=== PATIENT | male | born 1930 | race Caucasian/White ===

== ENCOUNTER → 2017-04-05 | Outpatient (CLI) | payer MEDICARE ==
[~2017-04-05] MED LIST: ACET500 PO; ASPI81CH; ASPI81CH PO; ASPI81EC PO; ATOR10 PO; Bisac-Evac10 MG RC; CEPH500 PO; CHOL10002 PO; CLON.5 PO; CVS DISPOSABLE399 ML PR; CYAN1000 IM; CYAN1000I IM; DIPATR PO; DOC250 PO; DOCU100 PO; Dilantin 100 m100 MG PO; EPRO400; ESCI5 PO; EXELON1 EACH TOP; FURO40 PO; GABA300 PO; HYDACE5 PO; LAVAP17G PO; LOPE2C PO; LORA1 PO; LOSA25 PO; LOSHYD PO; Loperamide2 MG PO; MECL25 PO; METO10 PO; METO50 PO; Milk Of Ma400 MG/5 M PO; OMEP10ER PO; OMEP20ER PO; ONDA4 PO; ONDA4ODT MM; PHENY100ER PO; PRESTIQ PO; PROC10 PO; QUET25 PO; SERT100; TRAM50 PO; TRAZ50 PO
[2017-04-05 10:51] LABS: Influenza A Negative (NEGATIVE); Influenza B Negative (NEGATIVE)
== END ==
LOC: LAB 10:26
PROVIDERS: Internal Medicine
DX: R05 Cough (principal); R50.9 Fever, unspecified
CPT/HCPCS: 87804

== ENCOUNTER 2018-02-03 12:12 | Emergency (ER) | payer MEDICARE ==
[~2018-02-03] VITALS: Ht 185.4 cm; Wt 81.7 kg
[~2018-02-03 12:12] MED LIST changes: -FURO40 PO
[2018-02-03] MEDS ORDERED: FURO40 PO (12:35)
[2018-02-03 13:02] LABS: BASOPHILS ABSOLUTE AUTO 0.05 K/mm3 (0.00-0.23); BASOPHILS PERCENT AUTO 0 % (0-2); EOSINOPHILS ABSOLUTE AUTO 0.03 K/mm3 (0.00-0.68); EOSINOPHILS PERCENT AUTO 0 % (0-6); Hematocrit 37.8 % (37.0-53.0); Hemoglobin 12.5 g/dL (13.5-17.5); IMMATURE GRAN ABSOLUTE AUTO 0.04 K/mm3 (0.00-0.10); IMMATURE GRAN PERCENT AUTO 0 % (0-1); LYMPHOCYTES ABSOLUTE AUTO 0.71 K/mm3 (0.84-5.20); LYMPHOCYTES PERCENT AUTO 6 % (21-46); MONOCYTES ABSOLUTE AUTO 0.89 K/mm3 (0.16-1.47); MONOCYTES PERCENT AUTO 8 % (4-13); Mean Corpuscular HGB 30.3 pg (26.0-34.0); Mean Corpuscular HGB Conc 33.1 g/dL (31.5-36.5); Mean Corpuscular Volume 92 fL (80-100); Mean Platelet Volume 9.3 fL (9.1-12.4); NEUTROPHILS ABSOLUTE AUTO 9.52 K/mm3 (1.96-9.15); NEUTROPHILS PERCENT AUTO 85 % (41-73); Platelet Count 175 K/mm3 (150-400); RDW Coefficient Variation 13.4 % (11.7-14.2); RDW Standard Deviation 44.7 fL (35.1-46.3); Red Blood Cell Count 4.12 M/mm3 (4.30-5.90); White Blood Cell Count 11.24 K/mm3 (4.00-11.30)
[2018-02-03 13:16] LABS: Bun/Creatinine Ratio 23.2 (12.0-20.0); Creatinine, Blood 1.25 mg/dL (0.60-1.20); Potassium, Blood 4.1 mmol/L (3.5-5.5)
[2018-02-03 13:59] LABS: Influenza A Negative (NEGATIVE); Influenza B Negative (NEGATIVE)
[2018-02-03 14:14] LABS: Bilirubin, Urine Neg (Neg); Blood, Urine 4+ (Neg); Glucose Qualitative, Urine Neg (Neg); Ketones, Urine 1+ (Neg); Leukocyte Esterase, Urine 3+ (Neg); Nitrite, Urine Pos (Neg); Protein, Urine 2+ (Neg); Urobilinogen, Urine NORM (Normal)
[2018-02-03 14:25] LABS: Appearance, Urine Clear (Clear); Color, Urine Yellow (P-Yellow)
[2018-02-03 14:29] LABS: Triple Phosphate Crystals Mod /hpf
[2018-02-03 14:30] LABS: Bacteria Many /hpf; Squamous Epithelial Cells Few /hpf (Few)
[2018-02-03] MEDS ORDERED: CEPH500 PO (14:33)
== END 2018-02-03 15:21 | disposition home or self-care (01) ==
LOC: ER 12:12
PROVIDERS: Emergency Medicine
DX: F03.90 Unspecified dementia, unspecified severity, without behavioral disturbance, psychotic disturbance, mood disturbance, and anxiety (principal); R50.9 Fever, unspecified; W18.30XA Fall on same level, unspecified, initial encounter; Z79.899 Other long term (current) drug therapy; Z79.82 Long term (current) use of aspirin; I10 Essential (primary) hypertension; F41.9 Anxiety disorder, unspecified; Z86.73 Personal history of transient ischemic attack (TIA), and cerebral infarction without residual deficits; K21.9 Gastro-esophageal reflux disease without esophagitis; G40.909 Epilepsy, unspecified, not intractable, without status epilepticus; Z87.891 Personal history of nicotine dependence
CPT/HCPCS: 70450; 71046; 80048; 81001; 85025; 87077; 87086; 87186; 87804; 93005; 93010; 96361; 96365; 99284-25; J0696; J7030

== ENCOUNTER → 2018-05-23 | Outpatient (CLI) | payer MEDICARE ==
[~2018-05-23] MED LIST changes: +FURO40 PO
[2018-05-23 12:12] LABS: Bilirubin, Urine Neg (Neg); Blood, Urine Neg (Neg); Glucose Qualitative, Urine Neg (Neg); Ketones, Urine Neg (Neg); Leukocyte Esterase, Urine Neg (Neg); Nitrite, Urine Neg (Neg); Protein, Urine Neg (Neg); Urobilinogen, Urine NORM (Normal)
[2018-05-23 12:21] LABS: Appearance, Urine Clear (Clear); Color, Urine Yellow (P-Yellow)
== END | disposition home or self-care (01) ==
LOC: LAB SHORT 07:30 → LAB 07:30
PROVIDERS: Internal Medicine
DX: N39.0 Urinary tract infection, site not specified (principal)
CPT/HCPCS: 81003

== ENCOUNTER 2019-02-16 18:58 | Emergency (ER) | payer MEDICARE, OTHER ==
[~2019-02-16] VITALS: Ht 182.9 cm; Wt 90.7 kg
[~2019-02-16 18:58] MED LIST changes: +ACET325 PO; -ACET500 PO; -Bisac-Evac10 MG RC; -CHOL10002 PO; -CYAN1000I IM; +CYANOCOBAL1000 MCG/1 IM; -LAVAP17G PO; +LOSA50 PO; +MIRALAX17 GM PO; +PHENYTOIN SODI100 MG PO; +VITAMIN D33000 UNI1 PO
[2019-02-16 19:23] LABS: BASOPHILS ABSOLUTE AUTO 0.05 K/mm3 (0.00-0.23); BASOPHILS PERCENT AUTO 1 % (0-2); EOSINOPHILS ABSOLUTE AUTO 0.41 K/mm3 (0.00-0.68); EOSINOPHILS PERCENT AUTO 5 % (0-6); Hemoglobin 11.8 g/dL (13.5-17.5); IMMATURE GRAN ABSOLUTE AUTO 0.07 K/mm3 (0.00-0.10); IMMATURE GRAN PERCENT AUTO 1 % (0-1); LYMPHOCYTES ABSOLUTE AUTO 1.71 K/mm3 (0.84-5.20); LYMPHOCYTES PERCENT AUTO 20 % (21-46); MONOCYTES ABSOLUTE AUTO 0.63 K/mm3 (0.16-1.47); MONOCYTES PERCENT AUTO 7 % (4-13); Mean Corpuscular HGB Conc 32.8 g/dL (31.5-36.5); Mean Corpuscular Volume 95 fL (80-100); Mean Platelet Volume 9.2 fL (9.1-12.4); NEUTROPHILS ABSOLUTE AUTO 5.75 K/mm3 (1.96-9.15); NEUTROPHILS PERCENT AUTO 67 % (41-73); Platelet Count 235 K/mm3 (150-400); RDW Standard Deviation 48.1 fL (35.1-46.3); Red Blood Cell Count 3.81 M/mm3 (4.30-5.90); White Blood Cell Count 8.62 K/mm3 (4.00-11.30)
[2019-02-16] MEDS ORDERED: BISA5EC PO (19:44)
[2019-02-16] MEDS ORDERED: Bumetanide2 MG PO (19:45)
[2019-02-16 19:50] LABS: Albumin, Blood 3.4 g/dL (3.4-5.0); Albumin/Globulin Ratio 0.8 (0.8-1.8); Bilirubin, Total 0.2 mg/dL (0.1-1.0); Bun/Creatinine Ratio 25.8 (12.0-20.0); Calcium, Blood 8.5 mg/dL (8.5-10.1); Creatinine, Blood 1.86 mg/dL (0.60-1.20); Globulin, Blood 4.4 g/dL (2.2-4.0); Potassium, Blood 3.8 mmol/L (3.5-5.5); Total Protein, Blood 7.8 g/dL (6.4-8.2); Troponin I 0.031 ng/mL (0.000-0.040)
[2019-02-16] MEDS ORDERED: POTA10T PO (20:55)
[2019-02-16] MEDS ORDERED: Mirapex1 MG PO ×2 (20:56→21:00)
[2019-02-16] MEDS ORDERED: QUET25 PO ×2 (20:57→20:59)
[2019-02-16] MEDS ORDERED: Seroquel Xr50 MG PO (20:57)
[2019-02-16] MEDS ORDERED: IBUP400 PO (20:58)
[2019-02-16] MEDS ORDERED: NITR.4SL SL (21:00)
[2019-02-16] MEDS ORDERED: ANTIFUNGAL30 GM TOP (21:01)
== END 2019-02-16 20:46 | disposition home or self-care (01) ==
LOC: ER 18:58
PROVIDERS: Emergency Medicine
DX: R25.2 Cramp and spasm (principal); F03.90 Unspecified dementia, unspecified severity, without behavioral disturbance, psychotic disturbance, mood disturbance, and anxiety; I10 Essential (primary) hypertension; F41.9 Anxiety disorder, unspecified; K21.9 Gastro-esophageal reflux disease without esophagitis; G40.909 Epilepsy, unspecified, not intractable, without status epilepticus; Z79.899 Other long term (current) drug therapy; Z79.82 Long term (current) use of aspirin; Z86.73 Personal history of transient ischemic attack (TIA), and cerebral infarction without residual deficits; Z87.891 Personal history of nicotine dependence
CPT/HCPCS: 71046; 80053; 83880; 84484; 85025; 93005; 93010; 99284-25

== ENCOUNTER → 2019-03-05 | Outpatient (CLI) | payer MEDICARE, OTHER ==
[~2019-03-05] MED LIST changes: +ANTIFUNGAL30 GM TOP; +BISA5EC PO; +Bumetanide2 MG PO; +IBUP400 PO; +ISOMON20 PO; +Mirapex1 MG PO; +NITR.4SL SL; +POTA10T PO; +Seroquel Xr50 MG PO
[2019-03-06 13:44] LABS: Appearance, Urine Clear (Clear); Bilirubin, Urine Neg (Neg); Blood, Urine Neg (Neg); Color, Urine Yellow (P-Yellow); Glucose Qualitative, Urine Neg (Neg); Ketones, Urine Neg (Neg); Leukocyte Esterase, Urine Neg (Neg); Nitrite, Urine Neg (Neg); Protein, Urine Neg (Neg); Specific Gravity, Urine 1.015 (1.003-1.022); Urobilinogen, Urine NORM (Normal)
== END ==
LOC: LAB 18:45 → LAB SHORT 18:45
PROVIDERS: Internal Medicine
DX: N39.0 Urinary tract infection, site not specified (principal)
CPT/HCPCS: 81003

== ENCOUNTER 2019-03-06 12:37 | Emergency (ER) | payer MEDICARE, OTHER ==
[~2019-03-06] VITALS: Ht 182.9 cm; Wt 79.4 kg
[~2019-03-06 12:37] MED LIST changes: -ISOMON20 PO
[2019-03-06 13:01] LABS: BASOPHILS ABSOLUTE AUTO 0.05 K/mm3 (0.00-0.23); BASOPHILS PERCENT AUTO 1 % (0-2); EOSINOPHILS ABSOLUTE AUTO 0.46 K/mm3 (0.00-0.68); EOSINOPHILS PERCENT AUTO 5 % (0-6); Hematocrit 35.7 % (37.0-53.0); Hemoglobin 11.5 g/dL (13.5-17.5); IMMATURE GRAN ABSOLUTE AUTO 0.06 K/mm3 (0.00-0.10); IMMATURE GRAN PERCENT AUTO 1 % (0-1); LYMPHOCYTES ABSOLUTE AUTO 1.39 K/mm3 (0.84-5.20); LYMPHOCYTES PERCENT AUTO 16 % (21-46); MONOCYTES ABSOLUTE AUTO 0.66 K/mm3 (0.16-1.47); MONOCYTES PERCENT AUTO 8 % (4-13); Mean Corpuscular HGB 30.8 pg (26.0-34.0); Mean Corpuscular HGB Conc 32.2 g/dL (31.5-36.5); Mean Corpuscular Volume 96 fL (80-100); Mean Platelet Volume 8.8 fL (9.1-12.4); NEUTROPHILS ABSOLUTE AUTO 6.06 K/mm3 (1.96-9.15); NEUTROPHILS PERCENT AUTO 70 % (41-73); Platelet Count 264 K/mm3 (150-400); RDW Coefficient Variation 13.7 % (11.7-14.2); RDW Standard Deviation 47.7 fL (35.1-46.3); Red Blood Cell Count 3.73 M/mm3 (4.30-5.90); White Blood Cell Count 8.68 K/mm3 (4.00-11.30)
[2019-03-06 13:15] LABS: Albumin/Globulin Ratio 0.7 (0.8-1.8); Bilirubin, Total 0.2 mg/dL (0.1-1.0); Bun/Creatinine Ratio 20.9 (12.0-20.0); Calcium, Blood 8.4 mg/dL (8.5-10.1); Creatinine, Blood 1.48 mg/dL (0.60-1.20); Globulin, Blood 4.3 g/dL (2.2-4.0); Potassium, Blood 4.7 mmol/L (3.5-5.5); Total Protein, Blood 7.3 g/dL (6.4-8.2)
== END 2019-03-06 15:06 | disposition home or self-care (01) ==
LOC: ER 12:37
PROVIDERS: Emergency Medicine
DX: S30.0XXA Contusion of lower back and pelvis, initial encounter (principal); I10 Essential (primary) hypertension; F41.9 Anxiety disorder, unspecified; G40.909 Epilepsy, unspecified, not intractable, without status epilepticus; F03.90 Unspecified dementia, unspecified severity, without behavioral disturbance, psychotic disturbance, mood disturbance, and anxiety; Z86.73 Personal history of transient ischemic attack (TIA), and cerebral infarction without residual deficits; Z79.899 Other long term (current) drug therapy; Z79.82 Long term (current) use of aspirin; W19.XXXA Unspecified fall, initial encounter
CPT/HCPCS: 36415; 70450; 71046; 72100; 73502; 80053; 85025; 93005; 93010; 99284-25

== ENCOUNTER 2019-03-09 19:40 | Emergency (ER) | payer MEDICARE, OTHER ==
[~2019-03-09] VITALS: Ht 185.4 cm; Wt 90.7 kg
[2019-03-09 20:04] LABS: BASOPHILS ABSOLUTE AUTO 0.06 K/mm3 (0.00-0.23); BASOPHILS PERCENT AUTO 1 % (0-2); EOSINOPHILS ABSOLUTE AUTO 0.61 K/mm3 (0.00-0.68); EOSINOPHILS PERCENT AUTO 6 % (0-6); Hematocrit 36.8 % (37.0-53.0); Hemoglobin 11.8 g/dL (13.5-17.5); IMMATURE GRAN PERCENT AUTO 1 % (0-1); LYMPHOCYTES ABSOLUTE AUTO 1.78 K/mm3 (0.84-5.20); LYMPHOCYTES PERCENT AUTO 18 % (21-46); MONOCYTES ABSOLUTE AUTO 0.81 K/mm3 (0.16-1.47); MONOCYTES PERCENT AUTO 8 % (4-13); Mean Corpuscular HGB 30.8 pg (26.0-34.0); Mean Corpuscular HGB Conc 32.1 g/dL (31.5-36.5); Mean Corpuscular Volume 96 fL (80-100); Mean Platelet Volume 8.7 fL (9.1-12.4); NEUTROPHILS ABSOLUTE AUTO 6.82 K/mm3 (1.96-9.15); NEUTROPHILS PERCENT AUTO 67 % (41-73); Platelet Count 318 K/mm3 (150-400); RDW Coefficient Variation 13.9 % (11.7-14.2); RDW Standard Deviation 48.6 fL (35.1-46.3); Red Blood Cell Count 3.83 M/mm3 (4.30-5.90); White Blood Cell Count 10.18 K/mm3 (4.00-11.30)
[2019-03-09 20:22] LABS: Troponin I <0.015 ng/mL (0.000-0.040)
[2019-03-09 20:23] LABS: Alanine Aminotransfer (ALT/SGP 19 U/L (12-78); Albumin, Blood 3.3 g/dL (3.4-5.0); Albumin/Globulin Ratio 0.8 (0.8-1.8); Alk Phos 184 U/L (50-136); Anion Gap 7 mmol/L (6-16); Aspartate Aminotrans (AST/SGOT 9 U/L (12-37); Bilirubin, Total 0.2 mg/dL (0.1-1.0); Blood Urea Nitrogen 30 mg/dL (8-24); Bun/Creatinine Ratio 19.9 (12.0-20.0); CO2, Blood 27 mmol/L (21-32); Calcium, Blood 8.5 mg/dL (8.5-10.1); Chloride, Blood 102 mmol/L (98-108); Creatinine, Blood 1.51 mg/dL (0.60-1.20); Globulin, Blood 4.3 g/dL (2.2-4.0); Glomerular Filtration Rate 47 (60-); Glucose, Blood 131 mg/dL (70-99); Potassium, Blood 3.8 mmol/L (3.5-5.5); Sodium, Blood 136 mmol/L (136-145); Total Protein, Blood 7.6 g/dL (6.4-8.2)
== END 2019-03-10 00:28 | disposition home or self-care (01) ==
LOC: ER 19:40
PROVIDERS: Emergency Medicine
DX: R07.9 Chest pain, unspecified (principal); I12.9 Hypertensive chronic kidney disease with stage 1 through stage 4 chronic kidney disease, or unspecified chronic kidney disease; N18.9 Chronic kidney disease, unspecified; I25.10 Atherosclerotic heart disease of native coronary artery without angina pectoris; F03.90 Unspecified dementia, unspecified severity, without behavioral disturbance, psychotic disturbance, mood disturbance, and anxiety; J44.9 Chronic obstructive pulmonary disease, unspecified; G40.909 Epilepsy, unspecified, not intractable, without status epilepticus; F41.9 Anxiety disorder, unspecified; K21.9 Gastro-esophageal reflux disease without esophagitis; Z87.891 Personal history of nicotine dependence; Z79.899 Other long term (current) drug therapy; Z79.82 Long term (current) use of aspirin; Z86.73 Personal history of transient ischemic attack (TIA), and cerebral infarction without residual deficits
CPT/HCPCS: 71046; 80053; 83880; 84484; 85025; 93005; 93010; 94640; 99285-25

== ENCOUNTER 2019-03-16 20:13 | Inpatient (IN) | payer MEDICARE, OTHER ==
[~2019-03-16] VITALS: Ht 177.8 cm; Wt 97.4 kg
[2019-03-16 20:35] LABS: BASOPHILS ABSOLUTE AUTO 0.07 K/mm3 (0.00-0.23); BASOPHILS PERCENT AUTO 1 % (0-2); EOSINOPHILS ABSOLUTE AUTO 0.36 K/mm3 (0.00-0.68); EOSINOPHILS PERCENT AUTO 3 % (0-6); Hematocrit 34.5 % (37.0-53.0); Hemoglobin 11.2 g/dL (13.5-17.5); IMMATURE GRAN PERCENT AUTO 1 % (0-1); LYMPHOCYTES ABSOLUTE AUTO 1.29 K/mm3 (0.84-5.20); LYMPHOCYTES PERCENT AUTO 12 % (21-46); MONOCYTES ABSOLUTE AUTO 0.85 K/mm3 (0.16-1.47); MONOCYTES PERCENT AUTO 8 % (4-13); Mean Corpuscular HGB 31.1 pg (26.0-34.0); Mean Corpuscular HGB Conc 32.5 g/dL (31.5-36.5); Mean Corpuscular Volume 96 fL (80-100); Mean Platelet Volume 8.9 fL (9.1-12.4); NEUTROPHILS ABSOLUTE AUTO 8.18 K/mm3 (1.96-9.15); NEUTROPHILS PERCENT AUTO 76 % (41-73); Platelet Count 275 K/mm3 (150-400); RDW Coefficient Variation 14.4 % (11.7-14.2); RDW Standard Deviation 49.4 fL (35.1-46.3); White Blood Cell Count 10.85 K/mm3 (4.00-11.30)
[2019-03-16 21:00] LABS: Albumin/Globulin Ratio 0.7 (0.8-1.8); Bilirubin, Total 0.1 mg/dL (0.1-1.0); Bun/Creatinine Ratio 23.8 (12.0-20.0); Calcium, Blood 8.3 mg/dL (8.5-10.1); Creatinine, Blood 1.47 mg/dL (0.60-1.20); Globulin, Blood 4.4 g/dL (2.2-4.0); Potassium, Blood 3.6 mmol/L (3.5-5.5); Total Protein, Blood 7.4 g/dL (6.4-8.2); Troponin I 0.136 ng/mL (0.000-0.040)
[2019-03-17 06:45] LABS: Bun/Creatinine Ratio 22.7 (12.0-20.0); Calcium, Blood 8.1 mg/dL (8.5-10.1); Creatinine, Blood 1.41 mg/dL (0.60-1.20); Potassium, Blood 3.8 mmol/L (3.5-5.5)
[2019-03-17 07:01] LABS: Troponin I 3.34 ng/mL (0.000-0.040)
--- NOTE | 2019-03-17 07:48 | NUR ---
PT TO ICU @ 0632 VIA FRANCOISE WITH ED RN. PT VERY CONFUSED, WILL ANSWER TO HIS NAME BUT UNABLE TO VERBALIZE NAME AND , FREQUENTLY ASKS WHERE HE IS AND WHAT IS HAPPENING, SPOKE WITH PTS SON THIS AM AND STS THIS IS PTS BASELINE. PTS RESPIRATIONS ARE EVEN AND UNLABORED, 96% ON RA, HR 64, BP STABLE. 3-4+ EDEMA TO BLE, PT DENIES ANY PAIN AT TIME OF ARRIVAL. SON STS WILL BE IN LATER TODAY TO VISIT WITH PT AND GET UPDATE ON PTS STATUS. REPORT TO ERROL WILKS.
--- NOTE | 2019-03-17 08:50 | NUR ---
DR. RED AT BEDSIDE FOR ASSESSMENT. NO NEW ORDERS AT THIS TIME, WILL LIKELY MEDICALLY MANAGE THIS PT. CARDIAC ECHO COMPLETE.
--- NOTE | 2019-03-17 13:35 | NUR ---
ASSISTED PT TO TRANSFER FROM BED TO TOILET. REQUIRES GAIT BELT AND FWW. PAIN IN L KNEE IS RESOLVED. NOTED THAT WHEN WALKING, PT DOES NOT STAND FULLY ERECT BUT HUNCHES OVER THE WALKER. ALSO SLIDES HIS R FOOT ON THE FLOOR, IS UNALBL;E TO PICK FOOT UP WHEN WALKING. UNSURE IF THIS IS BASELINE.
--- NOTE | 2019-03-17 16:17 | NUR ---
PT'S SON KATIE AT BEDSIDE, DR. RED ARRIVED TO SPEAK WITH HIM.
[2019-03-17 17:16] LABS: Prostate Specific Antigen 0.555 ng/mL (0.000-4.000)
--- NOTE | 2019-03-17 18:31 | NUR ---
SHIFT SUMMARY: NO ACUTE EVENTS TODAY, NO C/O CHEST DISCOMFORT. SATS > 92% ON RA, DENIES SOB. C/O PAIN IN L KNEE, MEDICATED X 1 WITH GOOD EFFECT. USES URINAL WITH MAX ASSIST (NEEDS TO STAND FOR EFFECTIVE VOID). USED BSC FOR BM. MAX ASSIST WITH GAIT BELT AND FWW TO STAND. PER SON KATIE, PT SLEEPS IN A RECLINER AT HOME, SO HE IS IN RECLINER HERE. ADEQUATE PO INTAKE. SON VISITED THIS AFTERNOON, SPOKE WITH DR. RED.
--- NOTE | 2019-03-17 18:55 | NUR ---
REPORT BEDSIDE REPORT RECEIVED FROM LASHAUN NORTON. PT SITTING IN RECLINER, SON AT HIS SIDE. PT PLEASANT, ANVIK, FORGETFUL. RN REPORTS PT HAS RESTLESS LEGS, EDEMA TO BLE, LT KNEE PAIN AND TYLENOL GIVEN EARLIER TODAY, BM TODAY. PT HAD ECHO TODAY. PT STANDS TO USE URINAL WITH GAIT BELT, WALKER, AND MAX ASSIST. RN ALSO REPORTS PT HAD NSTEMI, DEMENTIA, MS, ANXIETY, AND IS NOW MEDICAL WITH TELE. WILL CONTINUE TO MONITOR PT THROUGHTOUT THIS SHIFT.
[2019-03-18 03:42] LABS: BASOPHILS ABSOLUTE AUTO 0.03 K/mm3 (0.00-0.23); BASOPHILS PERCENT AUTO 1 % (0-2); EOSINOPHILS ABSOLUTE AUTO 0.35 K/mm3 (0.00-0.68); EOSINOPHILS PERCENT AUTO 6 % (0-6); Hematocrit 30.2 % (37.0-53.0); Hemoglobin 9.7 g/dL (13.5-17.5); IMMATURE GRAN ABSOLUTE AUTO 0.04 K/mm3 (0.00-0.10); IMMATURE GRAN PERCENT AUTO 1 % (0-1); LYMPHOCYTES ABSOLUTE AUTO 1.37 K/mm3 (0.84-5.20); LYMPHOCYTES PERCENT AUTO 23 % (21-46); MONOCYTES ABSOLUTE AUTO 0.57 K/mm3 (0.16-1.47); MONOCYTES PERCENT AUTO 10 % (4-13); Mean Corpuscular HGB 30.7 pg (26.0-34.0); Mean Corpuscular HGB Conc 32.1 g/dL (31.5-36.5); Mean Corpuscular Volume 96 fL (80-100); Mean Platelet Volume 8.6 fL (9.1-12.4); NEUTROPHILS ABSOLUTE AUTO 3.66 K/mm3 (1.96-9.15); NEUTROPHILS PERCENT AUTO 61 % (41-73); Platelet Count 220 K/mm3 (150-400); RDW Coefficient Variation 14.5 % (11.7-14.2); RDW Standard Deviation 50.1 fL (35.1-46.3); Red Blood Cell Count 3.16 M/mm3 (4.30-5.90); White Blood Cell Count 6.02 K/mm3 (4.00-11.30)
[2019-03-18 04:05] LABS: Bun/Creatinine Ratio 20.8 (12.0-20.0); Creatinine, Blood 1.44 mg/dL (0.60-1.20); Potassium, Blood 3.8 mmol/L (3.5-5.5)
[2019-03-18 04:08] LABS: Thyroid Stimulating Hormone 4.98 uIU/mL (0.360-4.800)
--- NOTE | 2019-03-18 06:35 | NUR ---
SHIFT SUMMARY PT SITS UP IN RECLINER OR LAYS IN BED THIS SHIFT. PT IS MAX ASSIST X2 WITH WALKER AND GAIT BELT WHEN UP. HEART RATE 50-80s, NSR /C PVCs PER ROLL PRESS OPERATOR. VS WNL; AFEBRILE. LUNGS REMAIN CLEAR, SAT 96% ON RM AIR. BOWEL SOUNDS PRESENT, VOIDS PER URINAL/BSC. 3+ EDEMA AND MILD REDNESS NOTED TO BLE. SL TO RT FA, PATENT. PT SWALLOWS WELL AND DRINKS ENSURE CLEAR THIS SHIFT PER REQUEST. PT CAN BE COMBATIVE, CONFUSED AT TIMES BUT OTHERWISE PLEASANT, SINGING TO THIS RN, BUT REMAINS CONFUSED TONIGHT. WILL CONTINUE TO MONITOR PT THIS SHIFT. WILL GIVE BEDSIDE REPORT ONCE DAY SHIFT RN ARRIVES.
--- NOTE | 2019-03-18 08:55 | NUR ---
BEGINNING OF SHIFT Assumed care of pt at 0700. Bedside report received from Concha WILKS. Pt sitting up in recliner. On room air. SR per monitor. Dr Martínez in to see pt early this AM. Discharge orders placed. adoption manager, Mayra WILKS, notified.
--- NOTE | 2019-03-18 09:16 | NUR ---
REPORT CALLED TO [facility] Spoke to Jennifer. All questions answered. Plan for patient to leave at 1000.
--- NOTE | 2019-03-18 10:40 | NUR ---
DISCHARGE Pt departed from ICU 8 via wheelchair with transport staff. This RN placed call to Dr Martínez to inquire if he would like to pt to be on a statin. Provider stated a statin was not ordered because it can aggrivate dementia and for this pt, the risk outweighs the potential benefit. Belongings transferred with patient.
[2019-03-18] MEDS ORDERED: ISOMON20 PO (11:03)
== END 2019-03-18 10:25 | disposition home or self-care (01) | DRG 281 ==
LOC: ER 20:13 → ERHOLD 20:14 → ICUE 03-17 06:34
PROVIDERS: Emergency Medicine; Internal Medicine; ADMIT Internal Medicine
DX: I21.4 Non-ST elevation (NSTEMI) myocardial infarction (principal); G40.109 Localization-related (focal) (partial) symptomatic epilepsy and epileptic syndromes with simple partial seizures, not intractable, without status epilepticus; F03.90 Unspecified dementia, unspecified severity, without behavioral disturbance, psychotic disturbance, mood disturbance, and anxiety; E78.5 Hyperlipidemia, unspecified; G25.81 Restless legs syndrome; F32.9 Major depressive disorder, single episode, unspecified; Z79.82 Long term (current) use of aspirin; G35 Multiple sclerosis; Z66 Do not resuscitate; I95.9 Hypotension, unspecified; N18.3 Chronic kidney disease, stage 3 (moderate); T46.3X5A Adverse effect of coronary vasodilators, initial encounter; Y92.239 Unspecified place in hospital as the place of occurrence of the external cause; I25.10 Atherosclerotic heart disease of native coronary artery without angina pectoris; R60.0 Localized edema; Z95.5 Presence of coronary angioplasty implant and graft; R32 Unspecified urinary incontinence; I12.9 Hypertensive chronic kidney disease with stage 1 through stage 4 chronic kidney disease, or unspecified chronic kidney disease
CPT/HCPCS: 36415; 71046; 80048; 80053; 83605; 83690; 83880; 84443; 84484; 85025; 93005; 93010; 93306; 96360; 96361; 99285-25; A9270; G0103; J1650; J7030

== ENCOUNTER 2019-03-30 15:19 | Emergency (ER) | payer MEDICARE, OTHER ==
[~2019-03-30] VITALS: Ht 182.9 cm; Wt 81.7 kg
[~2019-03-30 15:19] MED LIST changes: +ALDACTONE25 MG PO; -ASPI81CH PO; +Aspirin EC81 MG PO; +CEFP200 PO; +Flomax0.4 MG PO; +ISOMON20 PO; +Isosorbide Mono10 MG PO; +K-Dur10 MEQ PO; +Loratadine10 MG PO; +METOPROLOL TART25 MG PO; -Seroquel Xr50 MG PO; +TAMS.4ER PO
[2019-03-30 15:49] LABS: BASOPHILS ABSOLUTE AUTO 0.07 K/mm3 (0.00-0.23); BASOPHILS PERCENT AUTO 1 % (0-2); EOSINOPHILS ABSOLUTE AUTO 0.05 K/mm3 (0.00-0.68); EOSINOPHILS PERCENT AUTO 0 % (0-6); Hematocrit 34.7 % (37.0-53.0); IMMATURE GRAN ABSOLUTE AUTO 0.36 K/mm3 (0.00-0.10); IMMATURE GRAN PERCENT AUTO 3 % (0-1); LYMPHOCYTES ABSOLUTE AUTO 1.37 K/mm3 (0.84-5.20); LYMPHOCYTES PERCENT AUTO 10 % (21-46); MONOCYTES ABSOLUTE AUTO 0.95 K/mm3 (0.16-1.47); MONOCYTES PERCENT AUTO 7 % (4-13); Mean Corpuscular HGB 30.6 pg (26.0-34.0); Mean Corpuscular HGB Conc 31.7 g/dL (31.5-36.5); Mean Corpuscular Volume 96 fL (80-100); Mean Platelet Volume 8.8 fL (9.1-12.4); NEUTROPHILS ABSOLUTE AUTO 11.36 K/mm3 (1.96-9.15); NEUTROPHILS PERCENT AUTO 80 % (41-73); Platelet Count 395 K/mm3 (150-400); RDW Coefficient Variation 14.5 % (11.7-14.2); RDW Standard Deviation 51.7 fL (35.1-46.3); White Blood Cell Count 14.16 K/mm3 (4.00-11.30)
[2019-03-30 16:23] LABS: Albumin, Blood 2.3 g/dL (3.4-5.0); Albumin/Globulin Ratio 0.4 (0.8-1.8); Bilirubin, Total 0.3 mg/dL (0.1-1.0); Bun/Creatinine Ratio 26.5 (12.0-20.0); Calcium, Blood 8.5 mg/dL (8.5-10.1); Creatinine, Blood 1.55 mg/dL (0.60-1.20); Globulin, Blood 5.6 g/dL (2.2-4.0); Potassium, Blood 3.4 mmol/L (3.5-5.5); Total Protein, Blood 7.9 g/dL (6.4-8.2)
[2019-03-30 16:30] LABS: Source, Urine Clean Catch
[2019-03-30 16:32] LABS: Bilirubin, Urine Neg (Neg); Blood, Urine 5+ (Neg); Glucose Qualitative, Urine Neg (Neg); Ketones, Urine 1+ (Neg); Leukocyte Esterase, Urine 1+ (Neg); Nitrite, Urine Neg (Neg); Protein, Urine 3+ (Neg); Urobilinogen, Urine NORM (Normal)
[2019-03-30 16:46] LABS: Appearance, Urine Hazy (Clear); Color, Urine Yellow (P-Yellow)
[2019-03-30 16:48] LABS: White Blood Cells, Urine 0-2 /hpf (0-5)
[2019-03-30 16:49] LABS: Amorphous Light (0-Heavy); Bacteria Mod /hpf; Granular Casts 0-2 /lpf (0); Mucus Mod (0-Heavy); Squamous Epithelial Cells Few /hpf (Few)
[2019-03-30] MEDS ORDERED: ALBU2.5V5 INH (21:18)
== END 2019-03-30 20:59 | disposition home or self-care (01) ==
LOC: ER 15:19
PROVIDERS: Emergency Medicine
DX: E86.0 Dehydration (principal); I10 Essential (primary) hypertension; K21.9 Gastro-esophageal reflux disease without esophagitis; G40.909 Epilepsy, unspecified, not intractable, without status epilepticus; F41.9 Anxiety disorder, unspecified; F03.90 Unspecified dementia, unspecified severity, without behavioral disturbance, psychotic disturbance, mood disturbance, and anxiety; Z79.899 Other long term (current) drug therapy; Z79.82 Long term (current) use of aspirin; Z86.73 Personal history of transient ischemic attack (TIA), and cerebral infarction without residual deficits; Z87.891 Personal history of nicotine dependence
CPT/HCPCS: 36415; 71045; 80053; 81001; 85025; 87086; 93005; 93010; 96360; 99285-25; J7030